=== PATIENT | female | born 1980 | race Caucasian/White ===

== ENCOUNTER 2020-01-04 08:07 | Emergency (ER) | payer MEDICAID ==
[2020-01-04 08:29] VITALS: BP 137/95
--- NOTE | 2020-01-04 08:54 | Emergency Department Report ---
Blank Doc - Documentation Documentation: This is a 39-year-old female that presents with right-sided Saldaña's palsy. Upon exam patient presents with unable to furrow brow, slight drooping eyelid with an ability to close eye, no muscle tone to cheek, drooping mouth with inability to smile. There is no one-sided extremity weakness, no extremity drooping, patient does have a normal gait. No paralysis to any limps. EMOI. No unequal pupils. No LOC. No history of stroke. Upon examination patient does present with Saldaña's palsy.
[2020-01-04] MEDS ORDERED: dexAMETHasone 20 MG/5 ML VIAL IV ONE (10:32)
[2020-01-04] MEDS ORDERED: dexAMETHasone 20 MG/5 ML VIAL IM ONE (10:33)
[2020-01-04] MEDS ORDERED: IBUPROFEN 800 MG TAB PO ONE (10:42)
--- NOTE | 2020-01-04 11:00 | Emergency Department Report ---
ED Neuro Deficit HPI - General Chief Complaint: Neuro Symptoms/Deficit Stated Complaint: RT SIDE FACE NUMB Time Seen by Provider: 01/04/20 08:55 Source: patient Mode of arrival: Ambulatory Limitations: No Limitations - History of Present Illness Initial Comments: 39 yo F pt without significant past medical history presents with complaints of sudden onset of right sided facial numbness and facial drooping x this morning - Related Data Home Medications: Previous Rx's Medication Instructions Recorded Last Taken Type Ibuprofen [Motrin 800 MG tab] 800 mg PO Q8HR PRN #21 tablet 01/04/20 Unknown Rx Valacyclovir HCl [Valacyclovir] 1,000 mg PO TID 7 Days #21 tablet 01/04/20 Unknown Rx predniSONE [Deltasone] 20 mg PO TID #21 tab 01/04/20 Unknown Rx Allergies/Adverse Reactions: Allergies Allergy/AdvReac Type Severity Reaction Status Date / Time No Known Allergies Allergy Unverified 01/23/16 15:13 ED Review of Systems ROS: Stated complaint: RT SIDE FACE NUMB Other details as noted in HPI ED Past Medical Hx - Past Medical History Previous Medical History?: No - Surgical History Past Surgical History?: No - Social History Smoking Status: Current Every Day Smoker Substance Use Type: None - Medications Home Medications: Home Medications Medication Instructions Recorded Confirmed Last Taken Type Ibuprofen [Motrin 800 MG tab] 800 mg PO Q8HR PRN #21 tablet 01/04/20 Unknown Rx Valacyclovir HCl [Valacyclovir] 1,000 mg PO TID 7 Days #21 tablet 01/04/20 Unknown Rx predniSONE [Deltasone] 20 mg PO TID #21 tab 01/04/20 Unknown Rx ED Neuro Physical Exam - General Limitations: No Limitations ED Course Vital Signs 01/04/20 08:29 Temperature 98.5 F Pulse Rate 77 Respiratory 18 Rate Blood Pressure 137/95 [Right] O2 Sat by Pulse 100 Oximetry Critical care attestation.: If time is entered above; I have spent that time in minutes in the direct care of this critically ill patient, excluding procedure time. ED Disposition Clinical Impression: Saldaña palsy Disposition: DC-01 TO HOME OR SELFCARE Is pt being admited?: No Condition: Stable Instructions: Saldaña Palsy (ED) Prescriptions: predniSONE [Deltasone] 20 mg PO TID #21 tab Ibuprofen [Motrin 800 MG tab] 800 mg PO Q8HR PRN #21 tablet PRN Reason: headache/pain Valacyclovir HCl [Valacyclovir] 1,000 mg PO TID 7 Days #21 tablet Referrals: PRIMARY CARE,MD [Primary Care Provider] - 3-5 Days Forms: Work/School Release Form(ED)
== END 2020-01-04 12:59 | disposition home or self-care (01) ==
LOC: ED 08:07
DX: G51.0 Bell's palsy (principal); F17.200 Nicotine dependence, unspecified, uncomplicated; Z79.899 Other long term (current) drug therapy
CPT/HCPCS: 96372; 99282; J1100